=== PATIENT | female | born 1980 | race Caucasian/White ===

== ENCOUNTER 2021-11-27 06:13 | Inpatient (IN) | payer OTHER ==
[2021-11-27] MEDS ORDERED: LACTATED RINGERS SOLUTION 1000 ML INFUS.BAG IV ONE (07:27)
[2021-11-27] MEDS ORDERED: ACETAMINOPHEN 1000 MG/100 ML BAG IVPB ONE ×2 (07:27→16:05)
[2021-11-27] MEDS ORDERED: ONDANSETRON 4 MG/2 ML VIAL IVPUSH ONE ×2 (07:27→20:35)
[2021-11-27] MEDS ORDERED: FAMOTIDINE 20 MG/50 ML IVPB 20 MG/50 ML MG IVPB ONE ×2 (07:27→07:37)
[2021-11-27] MEDS ORDERED: ACETAMINOPHEN INJECTION 100 ML IVPB ONE ×2 (07:37→16:11)
[2021-11-27] MEDS ORDERED: ONDANSETRON 4 MG/2 ML VIAL ONE ×2 (07:37→20:35)
[2021-11-27 08:12] LABS: HEMOGLOBIN 12.3 GM/dL (10.7-15.3); MCH 28.5 pg (25.7-33.7); MCHC 33.2 g/dl (32.0-36.0); MEAN CELL VOLUME 85.8 fl (80-96); MEAN PLT VOLUME 8.4 fl (7.5-11.1); PLATELET COUNT 507 10^3/uL (134-434); RBC 4.32 M/mm3 (3.60-5.2); RDW 13.7 % (11.6-15.6); WHITE BLOOD COUNT 23.3 K/mm3 (4.0-10.0)
[2021-11-27 08:34] LABS: CHLORIDE 97 mmol/L (98-107); SODIUM 132 mmol/L (136-145)
[2021-11-27 08:37] LABS: ALBUMIN 2.4 g/dl (3.4-5.0); ANION GAP 12 MMOL/L (8-16); CALCIUM 9.1 mg/dL (8.5-10.1); CO2 23 mmol/L (21-32); LIPASE 73 U/L (73-393); MAGNESIUM 1.5 mg/dL (1.8-2.4)
[2021-11-27 08:38] LABS: BLOOD UREA NITROGEN 9.3 mg/dL (7-18)
[2021-11-27 08:40] LABS: CREATININE 0.8 mg/dL (0.55-1.3); SGOT/AST 10 U/L (15-37); SGPT/ALT 13 U/L (13-61)
[2021-11-27 08:41] LABS: PHOSPHOROUS 2.7 mg/dL (2.5-4.9)
[2021-11-27 08:42] LABS: ANISOCYTOSIS 0; BILIRUBIN,TOTAL 0.5 mg/dL (0.2-1); HELMET CELLS 0; HOWELL-JOLLY BODIES 0; MACROCYTOSIS 0; OVALOCYTE 0; ROULEAU 0; SICKELED CELLS 0; TARGET CELLS 0; TEAR DROP CELLS 0; TOT PROT 7.5 g/dl (6.4-8.2); TOXIC GRANULATION 0
[2021-11-27 08:43] LABS: ALK PHOS 195 U/L (45-117)
[2021-11-27 08:45] LABS: GLUCOSE,RANDOM 433 mg/dL (74-106)
[2021-11-27] MEDS ORDERED: morphine CARPU-JECT 2 MG/1 ML DISP.SYRIN IVPUSH ONE (08:45)
[2021-11-27] MEDS ORDERED: SODIUM CHLORIDE 0.9% 500 ML INFUS.BAG IV ONE (08:47)
[2021-11-27] MEDS ORDERED: MAGNESIUM SULF 50% (8.12 MEQ/2 ML-1 GM VIAL) IVPB ONE (08:47)
[2021-11-27] MEDS ORDERED: MAGNESIUM SULFATE IN WATER 2 GM/50 ML IVPB IVPB ONE (08:51)
[2021-11-27] MEDS ORDERED: morphine SULFATE 4 MG/ML VIAL ONE ×2 (08:51→11:57)
[2021-11-27 08:58] LABS: EPI CELLS 11 /uL (0-25.1); HYALINE CASTS 0 /uL (0-3.1); PH,URINE 5.5 (5.0-8.0); URINE APPEARANCE CLOUDY; URINE BACTERIA >9,000 /uL (0-1359); URINE BILIRUBIN NEGATIVE (NEGATIVE); URINE COLOR YELLOW; URINE GLUCOSE (UA) 3+ (NEGATIVE); URINE KETONE 1+ (NEGATIVE); URINE LEUK ESTERASE 1+ (NEGATIVE); URINE NITRITE NEGATIVE (NEGATIVE); URINE PROTEIN 2+ (NEGATIVE); URINE RBC 24 /uL (0-23.9); URINE UROBILINOGEN 0.2 mg/dL (0.2-1.0); URINE WBC 1200 /uL (0-25.8)
[2021-11-27 08:59] LABS: HCG,QUALITATIVE URINE Negative
[2021-11-27] MEDS ORDERED: CEFTRIAXONE 1,000 MG in DEXTROSE 5%-WATER - 50 ML IVPB ONE (09:33)
[2021-11-27] MEDS ORDERED: CEFTRIAXONE 1 GM/50 ML BAG ONE (11:21)
[2021-11-27] MEDS ORDERED: CLINDAMYCIN 600MG PREMIX IVPB 600 MG/50 ML BAG IVPB ONE ×2 (11:44→11:57)
[2021-11-27] MEDS ORDERED: VANCOMYCIN HCL 1,500 MG in DEXTROSE 5%-WATER - 500 ML IVPB ONE (11:45)
[2021-11-27] MEDS ORDERED: morphine CARPU-JECT 4 MG/1 ML DISP.SYRIN IVPUSH ONE (11:53)
[2021-11-27] MEDS ORDERED: PIPERACILLIN/TAZOB 3.375 GM 3.375 GM in DEXTROSE 5%-WATER - 50 ML IVPB ONE (11:56)
[2021-11-27] MEDS ORDERED: PHENAZOPYRIDINE HCL 100 MG TABLET (FP) PO ONE (12:23)
[2021-11-27] MEDS ORDERED: PIPERACILLIN/TAZOB 3.375 GM 3.375 GM/50 ML BAG IVPB ONE (12:26)
[2021-11-27] MEDS ORDERED: PHENAZOPYRIDINE HCL 100 MG TABLET (FP) ONE (12:42)
[2021-11-27] MEDS ORDERED: VANCOMYCIN 1 GM in D5W (PRE-DOCKED) 1,000 MG/250 ML IVPB ONE (13:55)
[2021-11-27] MEDS ORDERED: VANCOMYCIN/WATER FOR INJ (PEG) 1,000 MG/200 ML BAG IVPB ONE (15:23)
[2021-11-27] MEDS ORDERED: VANCOMYCIN 500 MG VIAL (RESTRICTED TO ID ONLY) ONE (15:25)
[2021-11-27] MEDS ORDERED: PROPOFOL 20 ML ONE ×2 (15:44→17:10)
[2021-11-27] MEDS ORDERED: MIDAZOLAM HCL 2 MG/2 ML SINGLE DOSE VIAL ONE (15:46)
[2021-11-27] MEDS ORDERED: SUCCINYLCHOLINE CHLORIDE 200 MG/10 ML SYRINGE ONE (15:46)
[2021-11-27 15:56] LABS: INR 1.36 (0.83-1.09); PROTHROMBIN TIME (PATIENT) 15.7 SEC (9.7-13.0)
[2021-11-27 15:59] LABS: ACTIVATED PTT 29.8 SECONDS (25.2-36.5)
[2021-11-27] MEDS ORDERED: LACTATED RINGERS SOLUTION 1,000 ML IV SCH (16:15)
[2021-11-27] MEDS ORDERED: INSULIN (NOVOLOG) ASPART 100 UNITS/ML 10ML VIAL SQ SCH (16:30)
[2021-11-27] MEDS ORDERED: PIPERACILLIN/TAZOB 3.375 GM 3.375 GM in DEXTROSE 5%-WATER - 50 ML IVPB SCH (18:00)
[2021-11-27] MEDS ORDERED: DOCUSATE SODIUM 100 MG CAPSULE (FP) PO PRN (18:12)
[2021-11-27] MEDS ORDERED: ALBUTEROL SO4 0.083% IH SOL 2.5 MG/3 ML VIAL.NEB. NEB ONE ×2 (19:31→19:35)
[2021-11-27] MEDS: LACTATED RINGERS SOLUTION 1,000 ML IV SCH (20:30)
[2021-11-27] MEDS: oxyCODONE HCL 5 MG TABLET PO PRN (20:43)
[2021-11-27] MEDS: HEPARIN NA (PORCINE) 5,000 UNITS/ML 1ML VIAL SQ SCH (21:10)
[2021-11-27] MEDS: INSULIN SLIDING SCALE (NOVOLOG) 1 VIAL SQ SCH (21:11)
[2021-11-27] MEDS ORDERED: HEPARIN NA (PORCINE) 5,000 UNITS/ML 1ML VIAL SQ SCH (22:00)
[2021-11-27] MEDS ORDERED: INSULIN SLIDING SCALE (NOVOLOG) 1 VIAL SQ SCH (22:00)
[2021-11-28] MEDS ORDERED: KETOROLAC TROMETHAMINE 30 MG/1 ML VIAL IVPUSH ONE (01:00)
[2021-11-28] MEDS: CLINDAMYCIN 900 MG PREMIX IVPB 900 MG/50 ML BAG IVPB SCH ×2 (01:19→09:07)
[2021-11-28] MEDS: PIPERACILLIN/TAZOB 4.5 GM 4.5 GM in DEXTROSE 5%-WATER 100 ML IVPB SCH ×3 (01:33→18:02)
[2021-11-28] MEDS ORDERED: CLINDAMYCIN 900 MG PREMIX IVPB 900 MG/50 ML BAG IVPB SCH (02:00)
[2021-11-28] MEDS: ACETAMINOPHEN 325 MG TABLET (FP) PO PRN ×2 (02:38→10:36)
[2021-11-28] MEDS: VANCOMYCIN/WATER 1250 MG 1,250 MG/250 ML BAG IVPB SCH ×2 (04:33→15:47)
[2021-11-28] MEDS: oxyCODONE HCL 5 MG TABLET PO PRN ×3 (04:44→21:05)
[2021-11-28] MEDS: INSULIN (NOVOLOG) ASPART 100 UNITS/ML 10ML VIAL SQ SCH ×2 (06:31→17:07)
[2021-11-28] MEDS: INSULIN SLIDING SCALE (NOVOLOG) 1 VIAL SQ SCH ×4 (06:32→21:10)
[2021-11-28] MEDS ORDERED: ALBUTEROL SO4 0.083% IH SOL 2.5 MG/3 ML VIAL.NEB. NEB ONE (06:58)
[2021-11-28 09:07] LABS: HEMOGLOBIN 10.3 GM/dL (10.7-15.3); MCH 28.5 pg (25.7-33.7); MCHC 33.3 g/dl (32.0-36.0); MEAN CELL VOLUME 85.6 fl (80-96); MEAN PLT VOLUME 8.3 fl (7.5-11.1); PLATELET COUNT 450 10^3/uL (134-434); RBC 3.62 M/mm3 (3.60-5.2); RDW 13.4 % (11.6-15.6); WHITE BLOOD COUNT 27.8 K/mm3 (4.0-10.0)
[2021-11-28] MEDS: HEPARIN NA (PORCINE) 5,000 UNITS/ML 1ML VIAL SQ SCH ×2 (09:07→21:10)
[2021-11-28] MEDS: metoPROLOL SUCCINATE 25 MG TAB.SR.24H (FP) PO SCH (09:07)
[2021-11-28 09:32] LABS: BLOOD UREA NITROGEN 6.1 mg/dL (7-18); CALCIUM 7.9 mg/dL (8.5-10.1)
[2021-11-28 09:35] LABS: CREATININE 0.6 mg/dL (0.55-1.3)
[2021-11-28 09:37] LABS: BILIRUBIN,TOTAL 0.4 mg/dL (0.2-1); TOT PROT 5.9 g/dl (6.4-8.2)
[2021-11-28 09:38] LABS: ALBUMIN 1.8 g/dl (3.4-5.0)
[2021-11-28] MEDS ORDERED: metoPROLOL SUCCINATE 25 MG TAB.SR.24H (FP) PO SCH (10:00)
[2021-11-28] MEDS ORDERED: BUDESONIDE/FORMETEROL FUMARATE 160/4.5 mcg INHALER IH SCH (10:00)
[2021-11-28] MEDS: BUDESONIDE/FORMETEROL FUMARATE 160/4.5 mcg INHALER IH SCH ×2 (10:36→21:11)
[2021-11-28 12:01] LABS: ANISOCYTOSIS 1+; MACROCYTOSIS 0
[2021-11-28] MEDS ORDERED: POTASSIUM CHLORIDE TABS 20 MEQ TABLET.ER (FP) PO ONE (14:47)
[2021-11-28] MEDS ORDERED: oxyCODONE HCL 5 MG TABLET PO PRN (14:48)
[2021-11-28] MEDS ORDERED: PIPERACILLIN/TAZOBACTAM 4.5 GM VIAL IVPB ONE (17:02)
[2021-11-28] MEDS: LACTATED RINGERS SOLUTION 1,000 ML IV SCH (18:02)
[2021-11-28 18:40] LABS: BASO % 0.1 % (0-2.0); EOS % 0.3 % (0-4.5); HEMATOCRIT 29.1 % (32.4-45.2); HEMOGLOBIN 9.8 GM/dL (10.7-15.3); LYMPH % 6.7 % (8-40); MCH 28.6 pg (25.7-33.7); MCHC 33.5 g/dl (32.0-36.0); MEAN CELL VOLUME 85.3 fl (80-96); MEAN PLT VOLUME 8.3 fl (7.5-11.1); MONO % 3.4 % (3.8-10.2); NEUT % 89.5 % (42.8-82.8); PLATELET COUNT 423 10^3/uL (134-434); RBC 3.41 M/mm3 (3.60-5.2); RDW 13.8 % (11.6-15.6); WHITE BLOOD COUNT 25.5 K/mm3 (4.0-10.0)
[2021-11-28 19:22] LABS: ANISOCYTOSIS 0; MACROCYTOSIS 0
[2021-11-29] MEDS: ACETAMINOPHEN 325 MG TABLET (FP) PO PRN (00:32)
[2021-11-29] MEDS: PIPERACILLIN/TAZOB 4.5 GM 4.5 GM in DEXTROSE 5%-WATER 100 ML IVPB SCH ×3 (01:37→17:20)
[2021-11-29] MEDS: oxyCODONE HCL 5 MG TABLET PO PRN ×4 (03:01→21:22)
[2021-11-29] MEDS: VANCOMYCIN/WATER 1250 MG 1,250 MG/250 ML BAG IVPB SCH ×2 (03:01→15:04)
[2021-11-29] MEDS: INSULIN SLIDING SCALE (NOVOLOG) 1 VIAL SQ SCH ×4 (06:29→21:21)
[2021-11-29] MEDS: INSULIN (NOVOLOG) ASPART 100 UNITS/ML 10ML VIAL SQ SCH ×2 (06:29→15:53)
[2021-11-29 08:30] LABS: HEMATOCRIT 29.4 % (32.4-45.2); HEMOGLOBIN 9.7 GM/dL (10.7-15.3); MCHC 32.9 g/dl (32.0-36.0); MEAN CELL VOLUME 85.3 fl (80-96); MEAN PLT VOLUME 8.5 fl (7.5-11.1); PLATELET COUNT 477 10^3/uL (134-434); RBC 3.44 M/mm3 (3.60-5.2); RDW 13.6 % (11.6-15.6); WHITE BLOOD COUNT 26.1 K/mm3 (4.0-10.0)
[2021-11-29 08:52] LABS: ALBUMIN 1.8 g/dl (3.4-5.0); CALCIUM 7.9 mg/dL (8.5-10.1)
[2021-11-29 08:55] LABS: CREATININE 0.5 mg/dL (0.55-1.3)
[2021-11-29 08:56] LABS: BILIRUBIN,TOTAL 0.5 mg/dL (0.2-1)
[2021-11-29 09:06] LABS: ANISOCYTOSIS 0; HELMET CELLS 0; HOWELL-JOLLY BODIES 0; MACROCYTOSIS 0; OVALOCYTE 0; ROULEAU 0; SICKELED CELLS 0; TARGET CELLS 0; TEAR DROP CELLS 0; TOXIC GRANULATION 0
[2021-11-29] MEDS: BUDESONIDE/FORMETEROL FUMARATE 160/4.5 mcg INHALER IH SCH ×2 (09:49→21:29)
[2021-11-29] MEDS: metoPROLOL SUCCINATE 25 MG TAB.SR.24H (FP) PO SCH (09:49)
[2021-11-29] MEDS: HEPARIN NA (PORCINE) 5,000 UNITS/ML 1ML VIAL SQ SCH ×2 (09:49→21:21)
[2021-11-29] MEDS ORDERED: POTASSIUM CHLORIDE TABS 20 MEQ TABLET.ER (FP) PO ONE (13:06)
[2021-11-29] MEDS: CLINDAMYCIN 600MG PREMIX IVPB 600 MG/50 ML BAG IVPB SCH (17:20)
[2021-11-29] MEDS: LACTATED RINGERS SOLUTION 1,000 ML IV SCH ×2 (17:21→23:10)
[2021-11-29] MEDS ORDERED: INSULIN (NOVOLOG) ASPART 100 UNITS/ML 10ML VIAL ONE (21:20)
[2021-11-30] MEDS: CLINDAMYCIN 600MG PREMIX IVPB 600 MG/50 ML BAG IVPB SCH ×3 (01:18→17:20)
[2021-11-30] MEDS: PIPERACILLIN/TAZOB 4.5 GM 4.5 GM in DEXTROSE 5%-WATER 100 ML IVPB SCH ×3 (02:07→18:06)
[2021-11-30] MEDS: oxyCODONE HCL 5 MG TABLET PO PRN ×4 (03:39→21:19)
[2021-11-30] MEDS: VANCOMYCIN/WATER 1250 MG 1,250 MG/250 ML BAG IVPB SCH ×2 (04:08→17:13)
[2021-11-30] MEDS: INSULIN (NOVOLOG) ASPART 100 UNITS/ML 10ML VIAL SQ SCH ×2 (06:32→17:31)
[2021-11-30] MEDS: INSULIN SLIDING SCALE (NOVOLOG) 1 VIAL SQ SCH ×4 (06:32→21:26)
[2021-11-30] MEDS ORDERED: ACETAMINOPHEN 1000 MG/100 ML BAG IVPB PRN (09:07)
[2021-11-30 09:19] LABS: HEMATOCRIT 25.7 % (32.4-45.2); MCH 29.5 pg (25.7-33.7); MEAN CELL VOLUME 84.4 fl (80-96); MEAN PLT VOLUME 8.2 fl (7.5-11.1); PLATELET COUNT 456 10^3/uL (134-434); RBC 3.04 M/mm3 (3.60-5.2); RDW 13.6 % (11.6-15.6); WHITE BLOOD COUNT 18.7 K/mm3 (4.0-10.0)
[2021-11-30 09:56] LABS: ALBUMIN 1.8 g/dl (3.4-5.0); BILIRUBIN,TOTAL 0.4 mg/dL (0.2-1); BLOOD UREA NITROGEN 5.8 mg/dL (7-18); CALCIUM 7.8 mg/dL (8.5-10.1); CREATININE 0.5 mg/dL (0.55-1.3)
[2021-11-30] MEDS ORDERED: PIPERACILLIN/TAZOBACTAM 4.5 GM VIAL IVPB ONE (10:03)
[2021-11-30] MEDS: metoPROLOL SUCCINATE 25 MG TAB.SR.24H (FP) PO SCH (10:05)
[2021-11-30] MEDS: HEPARIN NA (PORCINE) 5,000 UNITS/ML 1ML VIAL SQ SCH ×2 (10:09→21:25)
[2021-11-30] MEDS: BUDESONIDE/FORMETEROL FUMARATE 160/4.5 mcg INHALER IH SCH ×2 (10:09→22:57)
[2021-11-30 11:30] LABS: ANISOCYTOSIS 2+; MACROCYTOSIS 0; TOXIC GRANULATION 2+
[2021-11-30] MEDS ORDERED: PROPOFOL 20 ML ONE (14:22)
[2021-11-30] MEDS ORDERED: MIDAZOLAM HCL 2 MG/2 ML SINGLE DOSE VIAL ONE (14:22)
[2021-11-30] MEDS ORDERED: oxyCODONE HCL 5 MG TABLET PO PRN ×2 (14:26→16:09)
[2021-11-30] MEDS ORDERED: ONDANSETRON 4 MG/2 ML VIAL IVPUSH PRN ×3 (14:26→16:16)
[2021-11-30] MEDS ORDERED: LACTATED RINGERS SOLUTION 1,000 ML IV SCH ×3 (14:30→16:30)
[2021-11-30] MEDS: METOPROLOL TARTRATE 5 MG/5 ML VIAL IVPUSH ONE (16:05)
[2021-11-30] MEDS ORDERED: PROMETHAZINE HCL 25 MG/1 ML VIAL IVPUSH PRN (16:16)
[2021-11-30] MEDS: ACETAMINOPHEN 1000 MG/100 ML BAG IVPB PRN (19:44)
[2021-12-01] MEDS: CLINDAMYCIN 600MG PREMIX IVPB 600 MG/50 ML BAG IVPB SCH ×2 (01:10→10:05)
[2021-12-01] MEDS: oxyCODONE HCL 5 MG TABLET PO PRN ×5 (01:10→22:16)
[2021-12-01] MEDS: PIPERACILLIN/TAZOB 4.5 GM 4.5 GM in DEXTROSE 5%-WATER 100 ML IVPB SCH ×3 (01:45→17:36)
[2021-12-01] MEDS: ACETAMINOPHEN 1000 MG/100 ML BAG IVPB PRN (03:45)
[2021-12-01] MEDS ORDERED: VANCOMYCIN/WATER 1250 MG 1,250 MG/250 ML BAG IVPB SCH ×2 (04:00→07:00)
[2021-12-01] MEDS: INSULIN (NOVOLOG) ASPART 100 UNITS/ML 10ML VIAL SQ SCH ×2 (06:09→16:46)
[2021-12-01] MEDS: INSULIN SLIDING SCALE (NOVOLOG) 1 VIAL SQ SCH ×4 (06:10→21:43)
[2021-12-01] MEDS: METOPROLOL TARTRATE 5 MG/5 ML VIAL IVPUSH ONE (07:38)
[2021-12-01 09:23] LABS: BASO % 0.3 % (0-2.0); BLOOD UREA NITROGEN 5.4 mg/dL (7-18); CALCIUM 8.3 mg/dL (8.5-10.1); EOS % 1.3 % (0-4.5); HEMATOCRIT 27.9 % (32.4-45.2); HEMOGLOBIN 9.5 GM/dL (10.7-15.3); LYMPH % 11.5 % (8-40); MCH 28.9 pg (25.7-33.7); MCHC 34.1 g/dl (32.0-36.0); MEAN CELL VOLUME 84.7 fl (80-96); MEAN PLT VOLUME 8.1 fl (7.5-11.1); MONO % 6.9 % (3.8-10.2); PLATELET COUNT 505 10^3/uL (134-434); RBC 3.29 M/mm3 (3.60-5.2); WHITE BLOOD COUNT 17.2 K/mm3 (4.0-10.0)
[2021-12-01 09:27] LABS: CREATININE 0.5 mg/dL (0.55-1.3)
[2021-12-01 09:28] LABS: BILIRUBIN,TOTAL 0.4 mg/dL (0.2-1); TOT PROT 6.8 g/dl (6.4-8.2)
[2021-12-01] MEDS: DOCUSATE SODIUM 100 MG CAPSULE (FP) PO PRN (10:04)
[2021-12-01] MEDS: metoPROLOL SUCCINATE 25 MG TAB.SR.24H (FP) PO SCH (10:04)
[2021-12-01] MEDS: BUDESONIDE/FORMETEROL FUMARATE 160/4.5 mcg INHALER IH SCH ×2 (10:05→21:43)
[2021-12-01] MEDS: HEPARIN NA (PORCINE) 5,000 UNITS/ML 1ML VIAL SQ SCH ×2 (10:05→21:43)
[2021-12-01] MEDS ORDERED: INSULIN (NOVOLOG) ASPART 100 UNITS/ML 10ML VIAL ONE (10:54)
[2021-12-01] MEDS ORDERED: ACETAMINOPHEN 1000 MG/100 ML BAG IVPB ONE (16:30)
[2021-12-02] MEDS: PIPERACILLIN/TAZOB 4.5 GM 4.5 GM in DEXTROSE 5%-WATER 100 ML IVPB SCH ×3 (02:50→17:17)
[2021-12-02] MEDS: oxyCODONE HCL 5 MG TABLET PO PRN ×4 (03:57→21:20)
[2021-12-02] MEDS: INSULIN (NOVOLOG) ASPART 100 UNITS/ML 10ML VIAL SQ SCH ×2 (06:17→17:18)
[2021-12-02] MEDS: INSULIN SLIDING SCALE (NOVOLOG) 1 VIAL SQ SCH ×4 (06:17→21:21)
[2021-12-02] MEDS: DOCUSATE SODIUM 100 MG CAPSULE (FP) PO PRN (09:01)
[2021-12-02] MEDS: HEPARIN NA (PORCINE) 5,000 UNITS/ML 1ML VIAL SQ SCH ×2 (09:02→21:21)
[2021-12-02] MEDS: BUDESONIDE/FORMETEROL FUMARATE 160/4.5 mcg INHALER IH SCH ×2 (09:02→21:21)
[2021-12-02] MEDS: metoPROLOL SUCCINATE 25 MG TAB.SR.24H (FP) PO SCH (09:02)
[2021-12-02 11:37] LABS: BASO % 0.2 % (0-2.0); EOS % 1.5 % (0-4.5); HEMATOCRIT 26.5 % (32.4-45.2); HEMOGLOBIN 9.1 GM/dL (10.7-15.3); LYMPH % 12.6 % (8-40); MCHC 34.2 g/dl (32.0-36.0); MEAN PLT VOLUME 8.2 fl (7.5-11.1); MONO % 8.3 % (3.8-10.2); NEUT % 77.4 % (42.8-82.8); PLATELET COUNT 557 10^3/uL (134-434); RBC 3.12 M/mm3 (3.60-5.2); RDW 13.7 % (11.6-15.6); WHITE BLOOD COUNT 16.5 K/mm3 (4.0-10.0)
[2021-12-02 12:10] LABS: BLOOD UREA NITROGEN 5.6 mg/dL (7-18); CALCIUM 8.7 mg/dL (8.5-10.1)
[2021-12-02 12:14] LABS: BILIRUBIN,TOTAL 0.3 mg/dL (0.2-1); CREATININE 0.5 mg/dL (0.55-1.3)
[2021-12-02] MEDS: POLYETHYLENE GLYCOL (HEALTHYLAX) 3350 17 GM PACKET PO SCH (18:40)
[2021-12-02] MEDS ORDERED: INSULIN (NOVOLOG) ASPART 100 UNITS/ML 10ML VIAL ONE (21:07)
[2021-12-03] MEDS: PIPERACILLIN/TAZOB 4.5 GM 4.5 GM in DEXTROSE 5%-WATER 100 ML IVPB SCH ×3 (01:41→18:13)
[2021-12-03] MEDS: oxyCODONE HCL 5 MG TABLET PO PRN ×5 (05:30→23:35)
[2021-12-03] MEDS: INSULIN (NOVOLOG) ASPART 100 UNITS/ML 10ML VIAL SQ SCH ×2 (06:39→16:58)
[2021-12-03] MEDS: INSULIN SLIDING SCALE (NOVOLOG) 1 VIAL SQ SCH ×4 (06:39→21:05)
[2021-12-03] MEDS: metoPROLOL SUCCINATE 25 MG TAB.SR.24H (FP) PO SCH (09:17)
[2021-12-03] MEDS: HEPARIN NA (PORCINE) 5,000 UNITS/ML 1ML VIAL SQ SCH ×2 (09:17→21:05)
[2021-12-03] MEDS: BUDESONIDE/FORMETEROL FUMARATE 160/4.5 mcg INHALER IH SCH ×2 (09:18→21:05)
[2021-12-03] MEDS: POLYETHYLENE GLYCOL (HEALTHYLAX) 3350 17 GM PACKET PO SCH (09:29)
[2021-12-03 09:55] LABS: BASO % 0.2 % (0-2.0); EOS % 1.9 % (0-4.5); HEMATOCRIT 26.4 % (32.4-45.2); HEMOGLOBIN 8.8 GM/dL (10.7-15.3); LYMPH % 14.5 % (8-40); MCH 28.3 pg (25.7-33.7); MCHC 33.2 g/dl (32.0-36.0); MEAN CELL VOLUME 85.1 fl (80-96); MEAN PLT VOLUME 8.2 fl (7.5-11.1); MONO % 7.3 % (3.8-10.2); NEUT % 76.1 % (42.8-82.8); PLATELET COUNT 608 10^3/uL (134-434); RDW 13.9 % (11.6-15.6)
[2021-12-03 10:35] LABS: BLOOD UREA NITROGEN 4.6 mg/dL (7-18); CALCIUM 8.5 mg/dL (8.5-10.1)
[2021-12-03 10:42] LABS: CREATININE 0.5 mg/dL (0.55-1.3)
[2021-12-03 10:43] LABS: BILIRUBIN,TOTAL 0.5 mg/dL (0.2-1); TOT PROT 6.7 g/dl (6.4-8.2)
[2021-12-04] MEDS ORDERED: PIPERACILLIN/TAZOBACTAM 4.5 GM VIAL IVPB ONE (02:46)
[2021-12-04] MEDS: PIPERACILLIN/TAZOB 4.5 GM 4.5 GM in DEXTROSE 5%-WATER 100 ML IVPB SCH ×3 (02:51→18:23)
[2021-12-04] MEDS: oxyCODONE HCL 5 MG TABLET PO PRN ×4 (03:33→20:15)
[2021-12-04] MEDS: INSULIN SLIDING SCALE (NOVOLOG) 1 VIAL SQ SCH ×4 (06:02→22:01)
[2021-12-04] MEDS: INSULIN (NOVOLOG) ASPART 100 UNITS/ML 10ML VIAL SQ SCH ×2 (06:03→16:45)
[2021-12-04 09:47] LABS: BASO % 0.4 % (0-2.0); EOS % 2.4 % (0-4.5); HEMATOCRIT 25.3 % (32.4-45.2); HEMOGLOBIN 8.4 GM/dL (10.7-15.3); LYMPH % 17.2 % (8-40); MCH 28.2 pg (25.7-33.7); MCHC 33.2 g/dl (32.0-36.0); PLATELET COUNT 661 10^3/uL (134-434); RBC 2.97 M/mm3 (3.60-5.2); RDW 13.7 % (11.6-15.6); WHITE BLOOD COUNT 12.9 K/mm3 (4.0-10.0)
[2021-12-04] MEDS: HEPARIN NA (PORCINE) 5,000 UNITS/ML 1ML VIAL SQ SCH ×2 (10:26→22:00)
[2021-12-04] MEDS: POLYETHYLENE GLYCOL (HEALTHYLAX) 3350 17 GM PACKET PO SCH (10:26)
[2021-12-04] MEDS: BUDESONIDE/FORMETEROL FUMARATE 160/4.5 mcg INHALER IH SCH ×2 (10:28→22:01)
[2021-12-04] MEDS: metoPROLOL SUCCINATE 25 MG TAB.SR.24H (FP) PO SCH (10:28)
[2021-12-04 10:35] LABS: BLOOD UREA NITROGEN 5.5 mg/dL (7-18); CALCIUM 8.5 mg/dL (8.5-10.1)
[2021-12-04 10:38] LABS: CREATININE 0.4 mg/dL (0.55-1.3)
[2021-12-04 10:40] LABS: BILIRUBIN,TOTAL 0.3 mg/dL (0.2-1); TOT PROT 6.7 g/dl (6.4-8.2)
[2021-12-05] MEDS: oxyCODONE HCL 5 MG TABLET PO PRN ×4 (02:40→22:19)
[2021-12-05] MEDS: PIPERACILLIN/TAZOB 4.5 GM 4.5 GM in DEXTROSE 5%-WATER 100 ML IVPB SCH ×3 (02:45→18:27)
[2021-12-05] MEDS: INSULIN (NOVOLOG) ASPART 100 UNITS/ML 10ML VIAL SQ SCH ×2 (06:17→16:30)
[2021-12-05] MEDS: INSULIN SLIDING SCALE (NOVOLOG) 1 VIAL SQ SCH ×4 (06:17→22:19)
[2021-12-05] MEDS: metoPROLOL SUCCINATE 25 MG TAB.SR.24H (FP) PO SCH (09:55)
[2021-12-05] MEDS: HEPARIN NA (PORCINE) 5,000 UNITS/ML 1ML VIAL SQ SCH ×2 (09:57→22:19)
[2021-12-05] MEDS: POLYETHYLENE GLYCOL (HEALTHYLAX) 3350 17 GM PACKET PO SCH (09:57)
[2021-12-05] MEDS: BUDESONIDE/FORMETEROL FUMARATE 160/4.5 mcg INHALER IH SCH ×3 (09:59→22:24)
[2021-12-05 10:44] LABS: BASO % 0.4 % (0-2.0); HEMATOCRIT 25.5 % (32.4-45.2); HEMOGLOBIN 8.3 GM/dL (10.7-15.3); LYMPH % 18.5 % (8-40); MCHC 32.7 g/dl (32.0-36.0); MEAN CELL VOLUME 85.8 fl (80-96); MONO % 6.9 % (3.8-10.2); NEUT % 72.2 % (42.8-82.8); PLATELET COUNT 688 10^3/uL (134-434); RBC 2.98 M/mm3 (3.60-5.2); WHITE BLOOD COUNT 13.3 K/mm3 (4.0-10.0)
[2021-12-05 11:16] LABS: ALBUMIN 2.2 g/dl (3.4-5.0); BLOOD UREA NITROGEN 6.7 mg/dL (7-18); CALCIUM 8.8 mg/dL (8.5-10.1)
[2021-12-05 11:19] LABS: CREATININE 0.5 mg/dL (0.55-1.3)
[2021-12-05 11:21] LABS: BILIRUBIN,TOTAL 0.2 mg/dL (0.2-1); TOT PROT 6.9 g/dl (6.4-8.2)
[2021-12-05 18:25] VITALS: BMI 29.8
[2021-12-06] MEDS: PIPERACILLIN/TAZOB 4.5 GM 4.5 GM in DEXTROSE 5%-WATER 100 ML IVPB SCH (03:38)
[2021-12-06] MEDS: oxyCODONE HCL 5 MG TABLET PO PRN ×2 (03:47→09:14)
[2021-12-06] MEDS: INSULIN (NOVOLOG) ASPART 100 UNITS/ML 10ML VIAL SQ SCH (07:00)
[2021-12-06] MEDS: INSULIN SLIDING SCALE (NOVOLOG) 1 VIAL SQ SCH ×2 (07:01→10:59)
[2021-12-06 09:00] VITALS: BP 117/75; PULSE 107; RESP 18; TEMP 98.3
[2021-12-06] MEDS: metoPROLOL SUCCINATE 25 MG TAB.SR.24H (FP) PO SCH (09:14)
[2021-12-06] MEDS: POLYETHYLENE GLYCOL (HEALTHYLAX) 3350 17 GM PACKET PO SCH (09:14)
[2021-12-06] MEDS: HEPARIN NA (PORCINE) 5,000 UNITS/ML 1ML VIAL SQ SCH (09:15)
[2021-12-06] MEDS: BUDESONIDE/FORMETEROL FUMARATE 160/4.5 mcg INHALER IH SCH (09:15)
[2021-12-06 10:24] LABS: BASO % 0.5 % (0-2.0); EOS % 2.4 % (0-4.5); HEMATOCRIT 26.5 % (32.4-45.2); HEMOGLOBIN 8.6 GM/dL (10.7-15.3); LYMPH % 18.9 % (8-40); MCHC 32.5 g/dl (32.0-36.0); MEAN CELL VOLUME 86.3 fl (80-96); MONO % 5.5 % (3.8-10.2); NEUT % 72.7 % (42.8-82.8); PLATELET COUNT 773 10^3/uL (134-434); RBC 3.07 M/mm3 (3.60-5.2); RDW 13.8 % (11.6-15.6); WHITE BLOOD COUNT 11.5 K/mm3 (4.0-10.0)
[2021-12-06 10:40] LABS: ALBUMIN 2.3 g/dl (3.4-5.0); BLOOD UREA NITROGEN 5.5 mg/dL (7-18)
[2021-12-06 10:43] LABS: CREATININE 0.6 mg/dL (0.55-1.3)
[2021-12-06 10:44] LABS: BILIRUBIN,TOTAL 0.7 mg/dL (0.2-1); TOT PROT 7.7 g/dl (6.4-8.2)
[2021-12-06] MEDS ORDERED: AMOX TR/POT CLAV 875MG/125MG TABLETS (FP) PO SCH (17:30)
== END 2021-12-06 16:41 | disposition home or self-care (01) | DRG 710 ==
LOC: JER 06:13 → JERBED 12:17 → J8W 17:05 → JERBED 17:05 → J6S 20:10
PROVIDERS: ADMIT Internal Medicine; ATTEND Internal Medicine
PROC: 0D9Q0ZZ Drainage of Anus, Open Approach (ICD-10-PCS; principal; 2021-11-27 16:00)
PROC: 0JB90ZZ Excision of Buttock Subcutaneous Tissue and Fascia, Open Approach (ICD-10-PCS; 2021-11-30)
DX: A41.9 Sepsis, unspecified organism (principal); I96 Gangrene, not elsewhere classified; E11.65 Type 2 diabetes mellitus with hyperglycemia; N39.0 Urinary tract infection, site not specified; L02.215 Cutaneous abscess of perineum; D72.829 Elevated white blood cell count, unspecified; E66.9 Obesity, unspecified; I10 Essential (primary) hypertension; J45.909 Unspecified asthma, uncomplicated; L03.317 Cellulitis of buttock; L73.2 Hidradenitis suppurativa
CPT/HCPCS: 0241U-QW; 36415; 74177-TC; 76830-TC; 80053; 81003; 82962; 83605; 83690; 83735; 84100; 84703; 85025; 85610; 85730; 86850; 86900; 86901; 87040; 87070; 87076; 87077; 87086; 87186; 87205; 88304-TC; 94640; 94760; 99285-25; G0480; J1644; Q9967